=== PATIENT | female | born 1965 | race Caucasian/White ===

== ENCOUNTER 2023-01-07 13:08 | Outpatient (CLI) | payer BC | END 2023-01-07 13:09 | disposition home or self-care (01) | LOC: BICMAMMO 13:08 | PROVIDERS: ATTEND Obstetrics & Gynecology | DX: N63.22 Unspecified lump in the left breast, upper inner quadrant (principal); R92.8 Other abnormal and inconclusive findings on diagnostic imaging of breast | CPT/HCPCS: G0279 ==

== ENCOUNTER → 2023-01-08 | Day surgery (SDC) | payer BC | END | disposition home or self-care (01) | LOC: MAMMO 06:59 | PROVIDERS: ATTEND Obstetrics & Gynecology | PROC: 0H9U3ZX Drainage of Left Breast, Percutaneous Approach, Diagnostic (ICD-10-PCS; principal; 2023-01-08) | DX: N60.32 Fibrosclerosis of left breast (principal); N64.1 Fat necrosis of breast; N62 Hypertrophy of breast; N60.82 Other benign mammary dysplasias of left breast | CPT/HCPCS: 19081; 88305; 88341; 88342; A4648 ==

== ENCOUNTER 2023-08-02 09:28 | Outpatient (CLI) | payer BC | END 2023-08-02 09:29 | disposition home or self-care (01) | LOC: BICMAMMO 09:28 | PROVIDERS: ATTEND Obstetrics & Gynecology | DX: N63.20 Unspecified lump in the left breast, unspecified quadrant (principal) | CPT/HCPCS: G0279 ==

== ENCOUNTER 2023-12-31 10:08 | Outpatient (CLI) | payer BC | END 2023-12-31 10:09 | disposition home or self-care (01) | LOC: BICMAMMO 10:08 | PROVIDERS: ATTEND Obstetrics & Gynecology | DX: Z12.31 Encounter for screening mammogram for malignant neoplasm of breast (principal); Z85.828 Personal history of other malignant neoplasm of skin; Z91.89 Other specified personal risk factors, not elsewhere classified | CPT/HCPCS: 77063; 77067 ==